=== PATIENT | male | born 1985 | race Caucasian/White ===

== ENCOUNTER 2019-03-05 18:52 | Emergency (ER) | payer OTHER ==
[~2019-03-05] VITALS: Ht 162.6 cm; Wt 63.5 kg
[~2019-03-05 18:52] MED LIST: NORCO 5-325 TA1 EACH PO
[2019-03-05 20:11] VITALS: BP 135/97
== END 2019-03-05 20:57 | disposition home or self-care (01) ==
LOC: M.ERS 18:52
DX: S01.01XA Laceration without foreign body of scalp, initial encounter (principal); F17.200 Nicotine dependence, unspecified, uncomplicated; F41.9 Anxiety disorder, unspecified; Z90.49 Acquired absence of other specified parts of digestive tract; Y04.2XXA Assault by strike against or bumped into by another person, initial encounter; Y92.89 Other specified places as the place of occurrence of the external cause; Y93.89 Activity, other specified; Y99.8 Other external cause status

== ENCOUNTER 2019-03-09 04:09 | Emergency (ER) | payer OTHER ==
[~2019-03-09] VITALS: Ht 162.6 cm; Wt 63.5 kg
[2019-03-09 04:13] VITALS: BP 132/91
[2019-03-09 04:44] LABS: CALCIUM 9.5 mg/dL (8.5-10.1); CREATININE 1.1 mg/dL (0.6-1.3); POTASSIUM 3.4 mmol/L (3.5-5.1)
== END 2019-03-09 05:20 | disposition home or self-care (01) ==
LOC: M.ERS 04:09
PROVIDERS: Emergency Medicine Emergency Medical Services
DX: M79.675 Pain in left toe(s) (principal); F15.90 Other stimulant use, unspecified, uncomplicated; F41.9 Anxiety disorder, unspecified; Z90.49 Acquired absence of other specified parts of digestive tract